=== PATIENT | male | born 1995 | race African-American/Black ===

== ENCOUNTER 2017-03-08 09:25 | Emergency (ER) | payer OTHER ==
[~2017-03-08] VITALS: Ht 180.3 cm; Wt 120.2 kg
[~2017-03-08 09:25] MED LIST: ADVAIR 250-501 EACH; ALBUTEROL INHAL17 GM; CLARITIN10 MG; FLONASE; IBUPROFEN 600600 M1 PO; IBUPROFEN 800800 MG PO; KEFLEX250 MG PO; NOHOMEMEDICATIONS; NORCO 5-325 TA1 EACH PO; ULTRAM 50MG TAB50 MG PO; VICODIN 5-5001 EACH PO
[2017-03-08 10:23] LABS: URINE BILIRUBIN NEGATIVE (Negative); URINE BLOOD NEGATIVE (Negative); URINE COLOR YELLOW; URINE GLUCOSE-RANDOM* NEGATIVE (Negative); URINE KETONES NEGATIVE (Negative); URINE NITRITE NEGATIVE (Negative); URINE PROTEIN (DIPSTICK) NEGATIVE (Negative)
[2017-03-08 10:37] VITALS: BP 143/77
== END 2017-03-08 10:32 | disposition home or self-care (01) ==
LOC: ER 09:25
PROVIDERS: Physician Assistant
DX: R30.0 Dysuria (principal); J45.909 Unspecified asthma, uncomplicated; F10.99 Alcohol use, unspecified with unspecified alcohol-induced disorder; F15.10 Other stimulant abuse, uncomplicated